=== PATIENT | female | born 1940 | race Caucasian/White ===

== ENCOUNTER 2016-12-29 14:54 | Emergency (ER) | payer OTHER, BC ==
[2016-12-29 15:02] VITALS: BP 146/75; PULSE 82; TEMP 97.7; BMI 25.3
--- NOTE | 2016-12-29 15:04 | PDOC ---
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 The patient was walking up the steps yesterday when she felt hazy and weak, but denies losing consciousness. Patient states she hit the wall and fell to her knees. She denies chest pain, SOB, sweating, nausea, vomiting. She denies urinary or fecal incontinence after fall. No tongue tremor. Denies head pain, neck pain. Patient reports falling in October as well. She states she might have lost consciousness. She had a right sided hip fracture on Nov 09 2016, and was discharged on 11/10 with a right marvin arthroplasty. She was put on Lovenox 11/26, and has been on aspirin since. She reports having a HCT of 27 on discharge. She reports some right lower extremity swelling since the hip surgery, but hasn' t been worse in the last week. Patient states she has been told in the past that she might have a mid systolic click. She had a past echo in 2015 (EF stable at 45). She had a normal neck and brain MRA/MRI on Nov 26. Tire Service Technician: Dr. Nirav Rodriguez <Blake Aj - Last Filed: 12/29/16 18:11> - General Chief Complaint: Syncope/Near Syncope Stated Complaint: FALL, POSSIBLE SYNCOPE Time Seen by Provider: 12/29/16 14:57 Past History - Past Medical History Cancer: Yes (THYROID CA) Cardiac Disorders: Yes (H/O MYOCARDITIS, DIABETIC CARDIOMYOPATHY) Diabetes: Yes Hypercholesterolemia: Yes Seizures: Yes Thyroid Disease: Yes - Psycho/Social/Smoking Cessation Hx Anxiety: No Suicidal Ideation: No Smoking History: Never smoked Have you smoked in the past 12 months: No Hx Alcohol Use: No Drug/Substance Use Hx: No Substance Use Type: None <Evgeny Regan - Last Filed: 12/29/16 18:02> <Blake Aj - Last Filed: 12/29/16 18:11> - Past Medical History Allergies/Adverse Reactions: Allergies Allergy/AdvReac Type Severity Reaction Status Date / Time Penicillins Allergy Unknown Verified 12/29/16 14:56 NSAIDS (Non-Steroidal AdvReac Severe Nausea Verified 12/29/16 14:56 Anti-Inflamma Sulfa (Sulfonamide AdvReac Intermediate Verified 12/29/16 14:56 Antibiotics) nitrofurantoin AdvReac Unknown Verified 12/29/16 14:56 macrocrystalline [From Macrodantin] bacitracin AdvReac Verified 12/29/16 14:56 [From Neosporin ([id number])] bacitracin zinc AdvReac Verified 12/29/16 14:56 [From Neosporin ([id number])] levofloxacin [From Levaquin] AdvReac Verified 12/29/16 14:56 neomycin sulfate AdvReac Verified 12/29/16 14:56 [From Neosporin ([id number])] polymyxin B AdvReac Verified 12/29/16 14:56 [From Neosporin ([id number])] Home Medications: Ambulatory Orders Aspirin [Aspirin EC] 162 mg PO BID 08/27/16 Carvedilol [Coreg] 25 mg PO BID 08/27/16 Metformin HCl 1,000 mg PO BID 08/27/16 Nortriptyline HCl [Pamelor -] 20 mg PO ASDIR PRN 08/27/16 Levothyroxine [Synthroid -] 150 mcg PO DAILY 11/09/16 Prednisolone 1% Ophthalmic [Pred Forte 1% -] 1 drop OS DAILY 11/09/16 Atorvastatin Ca [Lipitor] 40 mg PO HS 12/29/16 Review of Systems - Review of Systems Able to Perform ROS?: Yes Comments:: 12/29/16 15:41 CONSTITUTIONAL: Present: weakness. Absent: fever, chills, diaphoresis, malaise, loss of appetite HEENT: Absent: rhinorrhea, nasal congestion, throat pain, throat swelling, difficulty swallowing, mouth swelling, ear pain, eye pain, visual Changes CARDIOVASCULAR: Absent: chest pain, syncope, palpitations, irregular heart rate, lightheadedness , peripheral edema RESPIRATORY: Absent: cough, shortness of breath, dyspnea with exertion, orthopnea, wheezing, stridor, hemoptysis GASTROINTESTINAL: Absent: abdominal pain, abdominal distension, nausea, vomiting, diarrhea, constipation, melena, hematochezia GENITOURINARY: Absent: dysuria, frequency, urgency, hesitancy, hematuria, flank pain, genital pain MUSCULOSKELETAL: Absent: myalgia, arthralgia, joint swelling SKIN: Absent: rash, itching, pallor HEMATOLOGIC/IMMUNOLOGIC: Absent: easy bleeding, easy bruising, lymphadenopathy, frequent infections ENDOCRINE: Absent: unexplained weight gain, unexplained weight loss, heat intolerance, cold intolerance NEUROLOGIC: Present: haziness. Absent: headache, focal weakness or paresthesias, seizure, mental status changes, bladder or bowel incontinence PSYCHIATRIC: Absent: anxiety, depression, suicidal or homicidal ideation, hallucinations. <Blake Aj - Last Filed: 12/29/16 18:11> *Physical Exam - Vital Signs Last Vital Signs Temp Pulse Resp BP Pulse Ox 97.7 F 82 18 146/75 100 12/29/16 14:55 12/29/16 14:55 12/29/16 14:55 12/29/16 14:55 12/29/16 14:55 <Evgeny Regan - Last Filed: 12/29/16 18:02> - Vital Signs Last Vital Signs Temp Pulse Resp BP Pulse Ox 97.7 F 82 18 146/75 100 12/29/16 14:55 12/29/16 14:55 12/29/16 14:55 12/29/16 14:55 12/29/16 14:55 - Physical Exam Comments: 12/29/16 15:43 GENERAL: Well developed, well nourished. Awake and alert. No acute distress. HEENT: Normocephalic, atraumatic. PERRLA, EOMI. No conjunctival pallor. Sclera are non- icteric. Moist mucous membranes. Oropharynx is clear. NECK: Supple. Full ROM. No JVD. Carotid pulses 2+ and symmetric, without bruits. No thyromegaly. No lymphadenopathy. CARDIOVASCULAR: Regular rate and rhythm. Faint mid systolic click. Distal pulses are 2+ and symmetric. PULMONARY: No evidence of respiratory distress. Lungs clear to auscultation bilaterally. No wheezing, rales or rhonchi. ABDOMINAL: Soft. Non-tender. Non-distended. No rebound or guarding. No organomegaly. Normoactive bowel sounds. MUSCULOSKELETAL Normal range of motion at all joints. No bony deformities or tenderness. No CVA tenderness. EXTREMITIES: No cyanosis. No clubbing. No edema. No calf tenderness. SKIN: Warm and dry. Normal capillary refill. No rashes. No jaundice. NEUROLOGICAL: Alert, awake, appropriate. Cranial nerves 2-12 intact. No deficits to light touch and temperature in face, upper extremities and lower extremities. No motor deficits in the in face, upper extremities and lower extremities. Normoreflexic in the upper and lower extremities. Normal speech. Toes are downgoing bilaterally. Gait is normal without ataxia. PSYCHIATRIC: Cooperative. Good eye contact. Appropriate mood and affect. <Blake Aj - Last Filed: 12/29/16 18:11> Heart Score/ECG Review - ECG Intrepretation Comment:: 12/29/16 15:33 Normal sinus rhythm at 78, normal axis, normal intervals, left bundle branch block, 1/2 mm J-point elevation in V1 through V3, inverted T-wave in aVL When compared to prior EKG, there are no significant changes <Evgeny Regan - Last Filed: 12/29/16 18:02> ED Treatment Course - LABORATORY CBC & Chemistry Diagram: 12/29/16 15:35 12/29/16 15:35 <Evgeny Regan - Last Filed: 12/29/16 18:02> - LABORATORY CBC & Chemistry Diagram: 12/29/16 15:35 12/29/16 15:35 <lBake Aj - Last Filed: 12/29/16 18:11> Medical Decision Making - Medical Decision Making 12/29/16 15:24 The patient is well-appearing and in no acute distress 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, 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, as well as our options for diagnostic workup She feels strongly that she did not lose consciousness My differential diagnosis includes: Mechanical fall Near-syncope Her clinical presentation is not consistent with pulmonary embolism, despite the relatively recent surgery She was adequately anticoagulated, and has no signs or symptoms of pulmonary embolism I discussed the risks and benefits of workup to exclude a diagnosis of pulmonary embolism versus deferring this workup with the patient She adamantly refused diagnostic evaluation for possible pulmonary embolism Her clinical presentation is not consistent with loss of consciousness secondary to seizure I discussed the risks and benefits of neuro imaging with the patient given the head trauma and unlikely possibility of seizure She adamantly refused diagnostic evaluation including neuro imaging Will obtain CBC, chemistries, TSH, troponin, EKG, chest x-ray Will place the patient on the monitor 12/29/16 15:54 CBC noted No ectopy on the monitor 12/29/16 16:13 Chemistries noted Troponin and TSH pending There is been no ectopy on the monitor Chest x-ray emergency Department interpretation: Possible pulmonary nodule, but no other acute cardiopulmonary disease I discussed with her the possible nodule found on her chest x-ray, and she understands the importance of close follow-up to exclude a diagnosis of malignancy Clinical impression: Mechanical fall She will follow up with her extractor machine operator for consideration of further outpatient workup I discussed the physical exam findings, ancillary test results and final diagnoses with the patient. I answered all of the patient's questions. The patient was satisfied with the care received and felt comfortable with the discharge plan and treatment plan. The patient will call their primary care physician within 24 hours to arrange follow-up and will return to the Emergency Department with any new, persistent or worsening symptoms. A portion of this note was documented by scribe services under my direction. I have reviewed the details of the note, within reason, and agree with the documentation with the following case summary and management plan written by me. 12/29/16 18:02 I called the pt and informed her that her TSH was slightly low and that I added a free T3 and free T4 <Evgeny Regan - Last Filed: 12/29/16 18:02> *DC/Admit/Observation/Transfer <Evgeny Regan - Last Filed: 12/29/16 18:02> - Attestations Scribe Attestion: 12/29/16 15:44 Documentation prepared by Blake Aj, acting as medical records assistant for Evgeny Regan MD. <Blake Aj - Last Filed: 12/29/16 18:11> Diagnosis at time of Disposition: Fall - Discharge Dispostion Disposition: HOME Condition at time of disposition: Stable - Patient Instructions Printed Discharge Instructions: How to Prevent Falls Additional Instructions: Return to the emergency department immediately with ANY new, persistent or worsening symptoms. You MUST call and/or follow up with your doctor tomorrow. Please make sure your doctor reviews the results of your emergency department evaluation. You should follow up with your extractor machine operator as soon as possible for consideration of further outpatient workup You also should discuss your chest x-ray findings of possible pulmonary nodules with your primary care physician, as they will require further workup to exclude a diagnosis of malignancy.
[2016-12-29 15:41] LABS: BASOPHIL 0.8 % (0-2.0); EOSINOPHIL 5.7 % (0-4.5); MCH 29.6 pg (25.7-33.7); MCHC 32.3 g/dl (32.0-36.0); MEAN CELL VOLUME 91.5 fl (80-96); PLATELET COUNT 319 K/MM3 (134-434); RDW 13.4 % (11.6-15.6); WHITE BLOOD COUNT 9.8 K/mm3 (4.0-10.0)
[2016-12-29 15:48] LABS: INR 1.13 (0.82-1.09); PROTHROMBIN TIME (PATIENT) 12.6 SEC (10.2-13.0)
[2016-12-29 16:00] LABS: CPK(DFH) 59 IU/L (26-140)
[2016-12-29 16:01] LABS: ALBUMIN 3.7 g/dl (3.5-5.0); ALK PHOS 85 U/L (32-92); ANION GAP 9 (8-16); BILIRUBIN,TOTAL 0.4 mg/dl (0.2-1.0); CALCIUM 9.3 mg/dl (8.4-10.2); CO2 26 mmol/L (22-28); CREATININE 0.8 mg/dl (0.6-1.3); GLUCOSE,RANDOM 111 mg/dl (74-106); MAGNESIUM 1.6 mg/dL (1.8-2.4); PHOSPHOROUS 3.7 mg/dl (2.5-4.6); SGOT/AST 17 U/L (10-42); SGPT/ALT 16 U/L (10-40); TOT PROT 6.6 g/dl (6.4-8.3)
--- NOTE | 2016-12-29 16:30 | PDOC ---
History of Present Illness - General Chief Complaint: Syncope/Near Syncope Stated Complaint: FALL, POSSIBLE SYNCOPE Time Seen by Provider: 12/29/16 14:57 Past History - Past Medical History Allergies/Adverse Reactions: Allergies Allergy/AdvReac Type Severity Reaction Status Date / Time Penicillins Allergy Unknown Verified 12/29/16 14:56 NSAIDS (Non-Steroidal AdvReac Severe Nausea Verified 12/29/16 14:56 Anti-Inflamma Sulfa (Sulfonamide AdvReac Intermediate Verified 12/29/16 14:56 Antibiotics) nitrofurantoin AdvReac Unknown Verified 12/29/16 14:56 macrocrystalline [From Macrodantin] bacitracin AdvReac Verified 12/29/16 14:56 [From Neosporin ([id number])] bacitracin zinc AdvReac Verified 12/29/16 14:56 [From Neosporin ([id number])] levofloxacin [From Levaquin] AdvReac Verified 12/29/16 14:56 neomycin sulfate AdvReac Verified 12/29/16 14:56 [From Neosporin ([id number])] polymyxin B AdvReac Verified 12/29/16 14:56 [From Neosporin ([id number])] Home Medications: Ambulatory Orders Aspirin [Aspirin EC] 162 mg PO BID 08/27/16 Carvedilol [Coreg] 25 mg PO BID 08/27/16 Metformin HCl 1,000 mg PO BID 08/27/16 Nortriptyline HCl [Pamelor -] 20 mg PO ASDIR PRN 08/27/16 Levothyroxine [Synthroid -] 150 mcg PO DAILY 11/09/16 Prednisolone 1% Ophthalmic [Pred Forte 1% -] 1 drop OS DAILY 11/09/16 Atorvastatin Ca [Lipitor] 40 mg PO HS 12/29/16 Cancer: Yes (THYROID CA) Cardiac Disorders: Yes (H/O MYOCARDITIS, DIABETIC CARDIOMYOPATHY) Diabetes: Yes Hypercholesterolemia: Yes Seizures: Yes Thyroid Disease: Yes - Psycho/Social/Smoking Cessation Hx Anxiety: No Suicidal Ideation: No Smoking History: Never smoked Have you smoked in the past 12 months: No Hx Alcohol Use: No Drug/Substance Use Hx: No Substance Use Type: None *Physical Exam - Vital Signs Last Vital Signs Temp Pulse Resp BP Pulse Ox 97.7 F 82 18 146/75 100 12/29/16 14:55 12/29/16 14:55 12/29/16 14:55 12/29/16 14:55 12/29/16 14:55 ED Treatment Course - LABORATORY CBC & Chemistry Diagram: 12/29/16 15:35 12/29/16 15:35 - ADDITIONAL ORDERS Additional order review: Laboratory Results 12/29/16 12/29/16 12/29/16 15:35 15:35 15:35 INR 1.13 Sodium 137 Potassium 4.7 Chloride 102 Carbon Dioxide 26 Anion Gap 9 BUN 25 H Creatinine 0.8 Creat Clearance w eGFR > 60 Random Glucose 111 H Calcium 9.3 Phosphorus 3.7 Magnesium 1.6 L Total Bilirubin 0.4 D AST 17 ALT 16 Alkaline Phosphatase 85 Creatine Kinase 59 Troponin I Cancelled Total Protein 6.6 Albumin 3.7 12/29/16 15:35 RBC 4.17 MCV 91.5 MCHC 32.3 RDW 13.4 MPV 8.0 Neutrophils % 59.0 Lymphocytes % 27.9 Monocytes % 6.6 Eosinophils % 5.7 H Basophils % 0.8 *DC/Admit/Observation/Transfer Diagnosis at time of Disposition: Fall - Discharge Dispostion Condition at time of disposition: Stable - Referrals - Patient Instructions Printed Discharge Instructions: How to Prevent Falls Additional Instructions: Return to the emergency department immediately with ANY new, persistent or worsening symptoms. You MUST call and/or follow up with your doctor tomorrow. Please make sure your doctor reviews the results of your emergency department evaluation. You should follow up with your expressive therapist as soon as possible for consideration of further outpatient workup You also should discuss your chest x-ray findings of possible pulmonary nodules with your primary care physician, as they will require further workup to exclude a diagnosis of malignancy. - Post Discharge Activity
[2016-12-29 16:41] LABS: TROPONIN I (DFP) < 0.03 ng/ml (0.03-0.50)
[2016-12-29 17:49] LABS: THYROID STIMULATING HORMONE 0.23 uIU/ml (0.358-3.74)
--- NOTE | 2016-12-31 08:41 | EKG ---
Test Reason : Blood Pressure : / mmHG Vent. Rate : 078 BPM Atrial Rate : 078 BPM P-R Int : 154 ms QRS Dur : 142 ms QT Int : 430 ms P-R-T Axes : 062 -19 088 degrees QTc Int : 490 ms NORMAL SINUS RHYTHM POSSIBLE LEFT ATRIAL ENLARGEMENT LEFT BUNDLE BRANCH BLOCK ABNORMAL ECG NO PREVIOUS ECGS AVAILABLE Confirmed by MELANI WILEY MD ([id number]) on 12/31/2016 8:41:25 AM Referred By: ANGELA SILVA Confirmed By:MELANI WILEY MD
== END 2016-12-29 16:51 | disposition home or self-care (01) ==
LOC: FER 14:54
DX: Z91.81 History of falling (principal); W18.39XA Other fall on same level, initial encounter; Y93.01 Activity, walking, marching and hiking; Y92.89 Other specified places as the place of occurrence of the external cause; I10 Essential (primary) hypertension; E78.5 Hyperlipidemia, unspecified; I42.9 Cardiomyopathy, unspecified; M54.5 Low back pain; G89.29 Other chronic pain; E11.9 Type 2 diabetes mellitus without complications; Z85.850 Personal history of malignant neoplasm of thyroid; E89.0 Postprocedural hypothyroidism
CPT/HCPCS: 36415; 71020-TC; 80053; 82550; 83735; 84100; 84439; 84443; 84481; 84484; 85025; 85610; 93005; 99284-25

== ENCOUNTER 2017-02-15 18:15 | Emergency (ER) | payer OTHER, BC ==
[2017-02-15 18:23] VITALS: BP 148/75; PULSE 73; TEMP 98.1; BMI 24.3
[2017-02-15] MEDS ORDERED: PIPERACILLIN/TAZOBACTAM 3.375 GM VIAL IVPB ONE (19:15)
[2017-02-15] MEDS ORDERED: VANCOMYCIN 1,000 MG VIAL (RESTRICTED TO ID ONLY) ONE (19:15)
--- NOTE | 2017-02-15 19:23 | PDOC ---
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 Patient states that she is unsure of when her symptoms began, but notes that they worsened last night. She complains of pain to the big toe with no radiation up the foot and is described as a sticky pain. The patient also notices a white line that developed along the toenail. Patient has been covering the toe with bacitracin. She recently had a pedicure done two weeks ago; but the patient reports that she has been going to the same place for years and has never had a problem. Denies recent trauma, falls, stubbing her foot, fevers, chills, night sweats, nausea or vomiting. 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 MEDICATIONS: reviewed ALLERGIES: Penicillin, NSAID, nitrofurantoin, sulfa, bacitracin, levofloxacin, neomycin sulfate, polymyxin B General: No fevers or chills, no weakness, no weight loss HEENT: No change in vision. No sore throat,. No ear pain CardioVascular: No chest pain or shortness of breath Respiratory:No cough, or wheezing. Gastrointestinal: no nausea, vomiting, diarrhea or constipation, No rectal bleeding Genitourinary: No dysuria, hematuria, or frequency Musculoskeletal: Pain, redness, and swelling to the right fifth toe Neurologic: No headache, vertigo, dizziness or loss of consciousness Psychiatric: nor depression Skin: No rashes or easy bruising Endocrine: no increased thirst or abnormal weight change Allergic: no skin or latex allergy All other systems reviewed and normal GENERAL: The patient is awake, alert, and fully oriented, in no acute distress. HEAD: Normal with no signs of trauma. EYES: Pupils equal, round and reactive to light, extraocular movements intact, sclera anicteric, conjunctiva clear. EXTREMITIES: Normal range of motion, no edema. RIGHT FOOT: Right foot great toe no purulence, marked swelling with increase in warmth and erythema of the toe. Swelling extends to the distal foot but warmth and redness extends to the inside of the foot and lower ankle area. No tenderness on palpation of the toe or the foot. Neurovascularly intact. NEUROLOGICAL: Normal speech, normal gait. PSYCH: Normal mood, normal affect. SKIN: Warm, Dry, normal turgor, no rashes or lesions noted. <Lizize Walters - Last Filed: 02/15/17 21:35> - General History Source: Patient Exam Limitations: No Limitations - History of Present Illness Initial Comments: 02/15/17 20:54 A portion of this note was documented by scribe services under my direction. I have reviewed the details of the note, within reason, and agree with the documentation. The case summary and management plan written by me. Assessment and plan: This is a 76-year-old female with history of [id number] diabetes who has some mild peripheral neuropathy of her feet. Patient post pedicure developed a infection of her right great toe which appears to be secondary to the pedicure and her toenail being cut too short. Patient has a normal white count there is no left shift. Patient is afebrile here in the emergency room. 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 Patient has a esl tutor that she can see on Saturday for a follow-up. Patient was given a dose of ceftriaxone and vancomycin here in the emergency room and will be discharged on clindamycin as she is ALLERGIC to both penicillin and sulfur medications. Patient was instructed to return to the emergency room if she develops any worsening symptoms or she is concerned for any reason that the infection is getting worse. <Anil Garvey I - Last Filed: 02/15/17 22:13> - General Chief Complaint: Pain, Acute Stated Complaint: RIGHT 1ST TOE PAIN Time Seen by Provider: 02/15/17 19:15 Past History <Lizzie Walters - Last Filed: 02/15/17 21:35> - Past Medical History Cancer: Yes (THYROID CA) Cardiac Disorders: Yes (H/O MYOCARDITIS, DIABETIC CARDIOMYOPATHY) Diabetes: Yes Hypercholesterolemia: Yes Seizures: Yes Thyroid Disease: Yes - Psycho/Social/Smoking Cessation Hx Anxiety: No Suicidal Ideation: No Smoking History: Never smoked Have you smoked in the past 12 months: No Hx Alcohol Use: No Drug/Substance Use Hx: No Substance Use Type: None <Anil Garvey I - Last Filed: 02/15/17 22:13> - Past Medical History Allergies/Adverse Reactions: Allergies Allergy/AdvReac Type Severity Reaction Status Date / Time Penicillins Allergy Unknown Verified 02/15/17 18:16 NSAIDS (Non-Steroidal AdvReac Severe Nausea Verified 02/15/17 18:16 Anti-Inflamma Sulfa (Sulfonamide AdvReac Intermediate Verified 02/15/17 18:16 Antibiotics) nitrofurantoin AdvReac Unknown Verified 02/15/17 18:16 macrocrystalline [From Macrodantin] bacitracin AdvReac Verified 02/15/17 18:16 [From Neosporin ([id number])] bacitracin zinc AdvReac Verified 02/15/17 18:16 [From Neosporin ([id number])] levofloxacin [From Levaquin] AdvReac Verified 02/15/17 18:16 neomycin sulfate AdvReac Verified 02/15/17 18:16 [From Neosporin ([id number])] polymyxin B AdvReac Verified 02/15/17 18:16 [From Neosporin ([id number])] Home Medications: Ambulatory Orders Aspirin [Aspirin EC] 81 mg PO DAILY 08/27/16 Carvedilol [Coreg] 25 mg PO BID 08/27/16 Metformin HCl 1,000 mg PO BID 08/27/16 Nortriptyline HCl [Pamelor -] 20 mg PO ASDIR PRN 08/27/16 Levothyroxine [Synthroid -] 150 mcg PO DAILY 11/09/16 Atorvastatin Ca [Lipitor] 40 mg PO HS 12/29/16 Cholecalciferol (Vitamin D3) [Vitamin D3 -] 2,000 unit PO DAILY 02/15/17 Clindamycin [Cleocin -] 300 mg PO Q6HPO #28 capsule 02/15/17 Ranitidine HCl [Zantac] 150 mg PO DAILY 02/15/17 *Physical Exam - Vital Signs Last Vital Signs Temp Pulse Resp BP Pulse Ox 98.1 F 73 18 148/75 100 02/15/17 18:16 02/15/17 18:16 02/15/17 18:16 02/15/17 18:16 02/15/17 18:16 Lizzie Woodward - Last Filed: 02/15/17 21:35> - Vital Signs Last Vital Signs Temp Pulse Resp BP Pulse Ox 98.1 F 73 18 148/75 100 02/15/17 18:16 02/15/17 18:16 02/15/17 18:16 02/15/17 18:16 02/15/17 18:16 <Anil Garvey I - Last Filed: 02/15/17 22:13> ED Treatment Course - LABORATORY CBC & Chemistry Diagram: 02/15/17 19:15 02/15/17 19:15 - RADIOLOGY Radiograph Interpretation: 02/15/17 21:35 Right Toe X-Ray There are 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 The alignment is satisfactory without gross evidence of bone destruction, periosteal elevation or soft tissue air. There is flexion deformity of the second and probably third and fourth toes rule out hammertoes. Correlate clinically. Impression: See discussion above. Correlate clinically to determine further evaluation. Reported By: Joel Wallace MD - Medications Given in the ED: ED Medications Discontinued Medications Generic Name Dose Route Start Last Admin Trade Name Freq PRN Reason Stop Dose Admin Vancomycin HCl 1,000 mg 02/15/17 19:24 02/15/17 19:30 Vancomycin (Pre-Docked) IVPB 02/15/17 19:25 1,000 mg ONCE ONE Administration Protocol <Lizzie Walters - Last Filed: 02/15/17 21:35> - LABORATORY CBC & Chemistry Diagram: 02/15/17 19:15 02/15/17 19:15 <Anil Garvey I - Last Filed: 02/15/17 22:13> *DC/Admit/Observation/Transfer - Attestations Scribe Attestion: 02/15/17 19:46 Documentation prepared by Lizzie Walters, acting as medical record retrieval specialist for Anil Garvey MD. <Lizzie Walters - Last Filed: 02/15/17 21:35> - Discharge Dispostion Admit: No <Anil Garvey I - Last Filed: 04/07/17 22:13> Diagnosis at time of Disposition: Cellulitis of great toe of left foot - Discharge Dispostion Disposition: HOME Condition at time of disposition: Stable - Prescriptions Prescriptions: Clindamycin [Cleocin -] 300 mg PO Q6HPO #28 capsule - Patient Instructions Additional Instructions: For the infection take clindamycin 1 tablet 4 times a day for the next 7 days. Tylenol or Motrin if needed for pain. Is very important that you call your esl tutor on Saturday and have him evaluate her toe. Return to the emergency room if you develop any fevers, worsening redness, pain , pus from the area or any concerns. Continue any medications as previously prescribed by your physician. You should follow up with your primary doctor as soon as possible regarding today's emergency department visit. . Please make sure your doctor reviews the results of your emergency evaluation. Thank you for coming to the Emergency Department today for your care. It was a pleasure to see you today. Please note that your evaluation is INCOMPLETE until you follow-up with your doctor.
[2017-02-15] MEDS ORDERED: VANCOMYCIN 1 GRAM (PRE-DOCKED) 1,000 MG/250 ML BAG IVPB ONE (19:24)
[2017-02-15] MEDS ORDERED: cefTRIAXone 1 GM/50 ML BAG (PRE-DOCKED) IVPB ONE (19:25)
[2017-02-15] MEDS ORDERED: cefTRIAXone SODIUM 1 GM VIAL ONE (19:31)
[2017-02-15 19:52] LABS: BASOPHIL 0.7 % (0-2.0); MCH 29.1 pg (25.7-33.7); MCHC 32.8 g/dl (32.0-36.0); MEAN CELL VOLUME 88.7 fl (80-96); MEAN PLT VOLUME 9.2 fl (7.5-11.1); NEUTROPHILS 55.5 % (42.8-82.8); PLATELET COUNT 274 K/MM3 (134-434); RDW 13.2 % (11.6-15.6); WHITE BLOOD COUNT 8.4 K/mm3 (4.0-10.0)
[2017-02-15 20:01] LABS: ALBUMIN 3.6 g/dl (3.5-5.0); ALK PHOS 77 U/L (32-92); ANION GAP 4 (8-16); CO2 29 mmol/L (22-28); COCKROFT - GAULT 71.6125; CREATININE 0.7 mg/dl (0.6-1.3); GLUCOSE,RANDOM 122 mg/dl (74-106); SGOT/AST 17 U/L (10-42); SGPT/ALT 12 U/L (10-40); TOT PROT 6.8 g/dl (6.4-8.3)
[2017-02-15 20:35] LABS: BILIRUBIN,TOTAL 0.4 mg/dl (0.2-1.0)
== END 2017-02-15 22:19 | disposition home or self-care (01) ==
LOC: FER 18:15
DX: L03.032 Cellulitis of left toe (principal); Z85.850 Personal history of malignant neoplasm of thyroid; E78.00 Pure hypercholesterolemia, unspecified; E11.9 Type 2 diabetes mellitus without complications; I51.4 Myocarditis, unspecified
CPT/HCPCS: 36415; 73660-TC; 80053; 85025; 87040; 96374; 96375; 99282-25

== ENCOUNTER 2017-07-16 17:47 | Emergency (ER) | payer OTHER, BC ==
--- NOTE | 2017-07-16 18:16 | PDOC ---
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 She reports the pain as burning and itching in quality. She reports wiping after the bathroom on Saturday and appreciated burning. She reports the burning has increased since Saturday. She states she visualized her rectum today and noticed a few small "vesicular lesions." She denies chest pain, shortness of breath, headache and dizziness. She denies fever, chills, nausea, vomit, diarrhea and constipation. She denies dysuria, frequency, urgency and hematuria. Allergies: penicillins, NSAIDS <Hilda Singh - Last Filed: 07/16/17 18:26> - General Chief Complaint: Pain Stated Complaint: RECTAL PAIN Past History - Past Medical History Cancer: Yes (THYROID CA) Cardiac Disorders: Yes (H/O MYOCARDITIS, DIABETIC CARDIOMYOPATHY) Diabetes: Yes Hypercholesterolemia: Yes Seizures: Yes Thyroid Disease: Yes - Psycho/Social/Smoking Cessation Hx Anxiety: No Suicidal Ideation: No Smoking History: Never smoked Have you smoked in the past 12 months: No Hx Alcohol Use: No Drug/Substance Use Hx: No Substance Use Type: None <Ana Maria Bowden - Last Filed: 07/16/17 18:18> <Hilda Singh - Last Filed: 07/16/17 18:26> - Past Medical History Allergies/Adverse Reactions: Allergies Allergy/AdvReac Type Severity Reaction Status Date / Time Penicillins Allergy Unknown Verified 07/16/17 17:49 NSAIDS (Non-Steroidal AdvReac Severe Nausea Verified 07/16/17 17:49 Anti-Inflamma Sulfa (Sulfonamide AdvReac Intermediate Verified 07/16/17 17:49 Antibiotics) nitrofurantoin AdvReac Unknown Verified 07/16/17 17:49 macrocrystalline [From Macrodantin] bacitracin AdvReac Verified 07/16/17 17:49 [From Neosporin ([id number])] bacitracin zinc AdvReac Verified 07/16/17 17:49 [From Neosporin ([id number])] levofloxacin [From Levaquin] AdvReac Verified 07/16/17 17:49 neomycin sulfate AdvReac Verified 07/16/17 17:49 [From Neosporin ([id number])] polymyxin B AdvReac Verified 07/16/17 17:49 [From Neosporin ([id number])] Home Medications: Ambulatory Orders Carvedilol [Coreg] 25 mg PO BID 08/27/16 Metformin HCl 1,000 mg PO BID 08/27/16 Nortriptyline HCl [Pamelor -] 20 mg PO ASDIR PRN 08/27/16 Levothyroxine [Synthroid -] 150 mcg PO DAILY 11/09/16 Atorvastatin Ca [Lipitor] 40 mg PO HS 12/29/16 Cholecalciferol (Vitamin D3) [Vitamin D3 -] 2,000 unit PO DAILY 02/15/17 Ranitidine HCl [Zantac] 150 mg PO DAILY 02/15/17 Valacyclovir HCl [Valtrex] 1,000 mg PO TID #21 tablet 07/16/17 Review of Systems - Review of Systems Able to Perform ROS?: Yes Comments:: 07/16/17 18:23 GENERAL/CONSTITUTIONAL: No fever or chills. No weakness. HEAD, EYES, EARS, NOSE AND THROAT: No change in vision. No ear pain or discharge. No sore throat. CARDIOVASCULAR: No chest pain or shortness of breath. RESPIRATORY: No cough, wheezing, or hemoptysis. GASTROINTESTINAL: (+) Rectal lesions, burning and itching. No nausea, vomiting, diarrhea or constipation. GENITOURINARY: No dysuria, frequency, or change in urination. MUSCULOSKELETAL: No joint or muscle swelling or pain. No neck or back pain. SKIN: No rash NEUROLOGIC: No headache, vertigo, loss of consciousness, or change in strength/ sensation. ENDOCRINE: No increased thirst. No abnormal weight change. HEMATOLOGIC/LYMPHATIC: No anemia, easy bleeding, or history of blood clots. ALLERGIC/IMMUNOLOGIC: No hives or skin allergy. <Hilda Singh - Last Filed: 07/16/17 18:26> *Physical Exam - Physical Exam General Appearance: Yes: Nourished, Appropriately Dressed. No: Apparent Distress <Ana Maria Bowden - Last Filed: 07/16/17 18:18> Medical Decision Making - Medical Decision Making 07/16/17 18:13 76 yo F with h/o HTN HLD, cardiomyopathy, DM here with c/o rectal pain and itching. 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 pain is burning and itching in quality. started few days ago, no diffiuclty with urination no weakness. no other complaints. differential: shingles ( in dermatome distribution), vs. herpetic. likley shingles due to distribution. will treat with valtrex. and nsaids. pcp followup. 07/16/17 18:22 pt with likley shingles. will dc with valtrex 1000 mg tid, and pain meds such as tylenol <Ana Maria Bowden - Last Filed: 07/16/17 18:18> *DC/Admit/Observation/Transfer - Discharge Dispostion Admit: No <Ana Maria Bowden - Last Filed: 07/16/17 18:18> - Attestations Scribe Attestion: 07/16/17 18:26 Documentation prepared by Hilda Singh, acting as medical art therapist for Ana Maria Bowden MD <Hilda Singh - Last Filed: 07/16/17 18:26> Diagnosis at time of Disposition: Zoster - Prescriptions Prescriptions: Valacyclovir HCl [Valtrex] 1,000 mg PO TID #21 tablet - Patient Instructions Printed Discharge Instructions: Shingles, DI for Shingles Additional Instructions: you should take valcyclovir 1000 mg three times daily x 7 days. follow up with your regular doctor. return for any problems or concenrs. you can take tylenol 500 mg every 6 hours as needed for pain. return for difficulty urinating, or stooling, fever, or any worsening symptoms
[2017-07-16] MEDS ORDERED: ACETAMINOPHEN 325 MG TABLET (FP) PO ONE (18:49)
[2017-07-16] MEDS ORDERED: valACYclovir HCL 1000 MG TABLET PO ONE (18:49)
[2017-07-16 18:58] VITALS: BP 129/77; PULSE 77; TEMP 98; BMI 24.0
[2017-07-16] MEDS ORDERED: ACETAMINOPHEN 325 MG TABLET (FP) ONE (19:02)
[2017-07-16] MEDS ORDERED: valACYclovir HCL 500 MG TABLET (FP) ONE (19:02)
--- NOTE | 2017-07-16 19:20 | PDOC ---
*Physical Exam - Vital Signs Last Vital Signs Temp Pulse Resp BP Pulse Ox 98 F 77 20 129/77 98 07/16/17 17:48 07/16/17 17:48 07/16/17 17:48 07/16/17 17:48 07/16/17 17:48 - Physical Exam Comments: 07/16/17 19:23 General: Well-nourished well-developed individual, no acute distress HEENT: Throat: Normal, tonsils normal, no erythema or exudate Neck: Supple, no meningeal signs, no lymphadenopathy Eyes::Pupils equal reactive and round, extraocular motion intact Chest: Nontender to palpation Cardiac: S1-S2 normal, regular rate and rhythm, no murmurs rubs or gallops Respiratory: Lungs clear to auscultation bilateral Abdomen: Soft, nondistended, normal bowel sounds, nontender to palpation diffusely Extremities: Warm, dry, no cyanosis, clubbing, or edema Skin: (+) there are multiple small slightly raised, nonvesicular areas of left perirectal and left buttock in a dermatomal distribution. No erythema associated. No increased warmth. No discharge. Neuro: Alert and oriented x3, nonfocal exam, grossly intact, normal gait Psych: Normal mood and affect <Hilda Singh - Last Filed: 07/16/17 19:23> - Vital Signs Last Vital Signs Temp Pulse Resp BP Pulse Ox 98 F 77 20 129/77 98 07/16/17 17:48 07/16/17 17:48 07/16/17 17:48 07/16/17 17:48 07/16/17 17:48 <Anil Garvey I - Last Filed: 07/16/17 23:31> ED Treatment Course - Medications Given in the ED: ED Medications Discontinued Medications Generic Name Dose Route Start Last Admin Trade Name Dylanq PRN Reason Stop Dose Admin Acetaminophen 650 mg 07/16/17 18:49 07/16/17 19:09 Tylenol - PO 07/16/17 18:50 650 mg ONCE ONE Administration Valacyclovir HCl 1,000 mg 07/16/17 18:49 07/16/17 19:09 Valtrex - PO 07/16/17 18:50 1,000 mg ONCE ONE Administration <Hilda Singh - Last Filed: 07/16/17 19:23> - Medications Given in the ED: ED Medications Discontinued Medications Generic Name Dose Route Start Last Admin Trade Name Jean Paul PRN Reason Stop Dose Admin Acetaminophen 650 mg 07/16/17 18:49 07/16/17 19:09 Tylenol - PO 07/16/17 18:50 650 mg ONCE ONE Administration Valacyclovir HCl 1,000 mg 07/16/17 18:49 07/16/17 19:09 Valtrex - PO 07/16/17 18:50 1,000 mg ONCE ONE Administration <Anil Garvey I - Last Filed: 07/16/17 23:31> Progress Note - Progress Note Progress Note: Was asked to perform a physical exam on this patient as patient most likely has shingles and the physician that took care of the patient is and her zoster titer is unknown. Exam performed only. <Anil Garvey I - Last Filed: 07/16/17 23:31> *DC/Admit/Observation/Transfer - Attestations Scribe Attestion: 07/16/17 19:23 Documentation prepared by Hilda Singh, acting as biomedical engineering aide for Anil Garvey MD <Hilda Singh - Last Filed: 07/16/17 19:23> <Anil Garvey I - Last Filed: 07/16/17 23:31> Diagnosis at time of Disposition: Zoster - Discharge Dispostion Disposition: HOME Condition at time of disposition: Stable - Prescriptions Prescriptions: Valacyclovir HCl [Valtrex] 1,000 mg PO TID #21 tablet - Referrals - Patient Instructions Printed Discharge Instructions: Shingles, DI for Shingles Additional Instructions: you should take valcyclovir 1000 mg three times daily x 7 days. follow up with your regular doctor. return for any problems or concenrs. you can take tylenol 500 mg every 6 hours as needed for pain. return for difficulty urinating, or stooling, fever, or any worsening symptoms - Post Discharge Activity
== END 2017-07-16 19:10 | disposition home or self-care (01) ==
LOC: FER 17:47
DX: B02.9 Zoster without complications (principal); Z85.850 Personal history of malignant neoplasm of thyroid; E11.9 Type 2 diabetes mellitus without complications; E78.00 Pure hypercholesterolemia, unspecified; E07.9 Disorder of thyroid, unspecified
CPT/HCPCS: 99281-25

== ENCOUNTER 2022-01-12 23:57 | Emergency (ER) | payer OTHER, BC ==
[2022-01-13 00:10] VITALS: BP 161/65; PULSE 96; TEMP 98.6; BMI 24.2
[2022-01-13 01:57] LABS: BASO % 0.3 % (0-2.0); EOS % 5.1 % (0-4.5); HEMATOCRIT 38.4 % (32.4-45.2); LYMPH % 21.7 % (8-40); MCH 30.2 pg (25.7-33.7); MCHC 33.9 g/dl (32.0-36.0); MEAN CELL VOLUME 89.1 fl (80-96); MEAN PLT VOLUME 8.1 fl (7.5-11.1); MONO % 6.8 % (3.8-10.2); NEUT % 66.1 % (42.8-82.8); PLATELET COUNT 283 10^3/uL (134-434); RBC 4.31 M/mm3 (3.60-5.2); RDW 13.8 % (11.6-15.6); WHITE BLOOD COUNT 12.2 K/mm3 (4.0-10.0)
[2022-01-13 02:05] LABS: INR 1.11 (0.83-1.09); PROTHROMBIN TIME (PATIENT) 12.8 SEC (9.7-13.0)
[2022-01-13 02:17] LABS: ALBUMIN 3.7 g/dl (3.4-5.0)
[2022-01-13 02:18] LABS: BLOOD UREA NITROGEN 23.6 mg/dL (7-18); CALCIUM 9.2 mg/dL (8.5-10.1)
[2022-01-13 02:23] LABS: BILIRUBIN,TOTAL 0.3 mg/dL (0.2-1); TOT PROT 7.4 g/dl (6.4-8.2)
[2022-01-13 03:54] LABS: EPI CELLS 12 /uL (0-25.1); HYALINE CASTS 2 /uL (0-3.1); PH,URINE 6.5 (5.0-8.0); URINE APPEARANCE CLEAR; URINE BACTERIA 13 /uL (0-1359); URINE BILIRUBIN NEGATIVE (NEGATIVE); URINE COLOR YELLOW; URINE GLUCOSE (UA) NEGATIVE (NEGATIVE); URINE KETONE NEGATIVE (NEGATIVE); URINE LEUK ESTERASE 1+ (NEGATIVE); URINE NITRITE NEGATIVE (NEGATIVE); URINE PROTEIN NEGATIVE (NEGATIVE); URINE RBC 7 /uL (0-23.9); URINE UROBILINOGEN 0.2 mg/dL (0.2-1.0); URINE WBC 53 /uL (0-25.8)
[2022-01-13] MEDS ORDERED: AZITHROMYCIN IVPB 500 MG in DEXTROSE 5%-WATER - 250 ML IVPB ONE (04:08)
[2022-01-13] MEDS ORDERED: CEFTRIAXONE 1 GM in DEXTROSE 5%-WATER - 100 ML IVPB ONE (04:08)
[2022-01-13] MEDS ORDERED: AZITHROMYCIN 500 MG VIAL IVPB ONE (04:10)
[2022-01-13] MEDS ORDERED: cefTRIAXone SODIUM 1 GM VIAL ONE (04:10)
[2022-01-13 04:16] LABS: N-TERMINAL BNP 154.1 pg/ml (5-450)
== END 2022-01-13 06:15 | disposition home or self-care (01) ==
LOC: FER 23:57
PROC: 3E033GC Introduction of Other Therapeutic Substance into Peripheral Vein, Percutaneous Approach (ICD-10-PCS; principal; 2022-01-12)
DX: J18.9 Pneumonia, unspecified organism (principal); R00.2 Palpitations
CPT/HCPCS: 36415; 71045-TC-FY; 71275-TC; 80053; 81003; 83036; 83718; 83721; 83880; 84436; 84443; 84478; 84479; 84484; 85025; 85379; 85610; 93005; 99285-25; Q9967

== ENCOUNTER 2022-08-07 23:08 | Emergency (ER) | payer OTHER, BC ==
[2022-08-07 23:26] VITALS: BP 172/89; PULSE 88; RESP 18; TEMP 98.5; BMI 23.7
[2022-08-07] MEDS ORDERED: CEFUROXIME AXETIL 250 MG TABLET PO ONE (23:32)
[2022-08-07] MEDS ORDERED: CEFUROXIME AXETIL 500 MG TABLET ONE ×2 (23:38→23:40)
[2022-08-07] MEDS ORDERED: CEFUROXIME AXETIL 500 MG TABLET PO ONE (23:41)
== END 2022-08-07 23:50 | disposition home or self-care (01) ==
LOC: FER 23:08
DX: L03.115 Cellulitis of right lower limb (principal)
CPT/HCPCS: 99283-25